=== PATIENT | female | born 1975 | race Caucasian/White ===

== ENCOUNTER 2017-11-18 20:36 | Emergency (ER) | payer OTHER ==
[~2017-11-18] VITALS: Ht 152.4 cm; Wt 107.0 kg
[~2017-11-18 20:36] MED LIST: ALDOMET500 MG; APIDRA100 U/ML; HUMULIN N100 U/ML; SYNTHROID175 MCG
[2017-11-18] MEDS ORDERED: ISOSORBIDE1 GM (20:45)
[2017-11-18] MEDS ORDERED: LASIX20 MG (20:45)
[2017-11-18] MEDS ORDERED: CARVEDILOL25 MG (20:45)
== END 2017-11-18 22:25 | disposition home or self-care (01) ==
LOC: ER 20:36
DX: R53.1 Weakness (principal); F41.1 Generalized anxiety disorder

== ENCOUNTER 2017-12-22 23:44 | Emergency (ER) | payer OTHER ==
[~2017-12-22] VITALS: Ht 152.4 cm; Wt 107.0 kg
[~2017-12-22 23:44] MED LIST changes: +CARVEDILOL25 MG; +ISOSORBIDE1 GM; +LASIX20 MG
== END 2017-12-23 06:05 | disposition home or self-care (01) ==
LOC: ER 23:44
DX: I95.89 Other hypotension (principal); T50.995A Adverse effect of other drugs, medicaments and biological substances, initial encounter; Y92.89 Other specified places as the place of occurrence of the external cause

== ENCOUNTER 2019-05-17 00:18 | Emergency (ER) | payer OTHER ==
[~2019-05-17] VITALS: Ht 149.9 cm; Wt 110.7 kg
[2019-05-17] MEDS ORDERED: COZAAR50 MG (00:53)
[2019-05-17] MEDS ORDERED: AMIODARONE (00:54)
[2019-05-17] MEDS ORDERED: [UNRECOGNIZED DRUG - OTHER] (00:55)
[2019-05-17] MEDS ORDERED: TRAYENTA (00:55)
[2019-05-17] MEDS ORDERED: LANTUS (00:56)
== END 2019-05-17 02:48 | disposition home or self-care (01) ==
LOC: ER 00:18
DX: I16.0 Hypertensive urgency (principal); I10 Essential (primary) hypertension